=== PATIENT | male | born 1990 | race Hispanic/Latino ===

== ENCOUNTER 2023-11-07 08:26 | Emergency (ER) | payer SELFPAY ==
[2023-11-07] MEDS ORDERED: predniSONE 20 MG TAB ONE (09:10)
== END 2023-11-07 09:33 | disposition home or self-care (01) ==
LOC: ERS 08:26
DX: M54.41 Lumbago with sciatica, right side (principal); G89.29 Other chronic pain
CPT/HCPCS: 99283; J7512